=== PATIENT | female | born 1945 | race African-American/Black ===

== ENCOUNTER 2021-10-31 13:53 | Outpatient (CLI) | payer BC, SELFPAY ==
--- NOTE | ~2021-10-31 | MR_ITS ---
EXAMINATION: MR brain/brain stem wo/w con DATE: 10/31/2021 15:20 INDICATION: Left hemifacial spasm. TECHNIQUE: Magnetic resonance imaging (MRI) of the brain and brainstem was performed without and with 20 mL MultiHance intravenous contrast. COMPARISON: None. FINDINGS: There are scattered areas of nonspecific increased T2-weighted signal intensity in the cere bral white matter and daysi. There is no intracranial hemorrhage, acute infarction, or abnormal intrac ranial mass lesion. The ventricles are normal in size. There is a mucous retention cyst in left maxil kali sinus. There are likely changes of ocular lens replacement surgeries. The mastoid air cells are normal. IMPRESSION: 1. 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 Reviewed, dictated and finalized at location A. IMPRESSION: 1. Extensive nonspecific cerebral white matter disease and pontine disease, whi ch likely represents chronic small vessel ischemic disease.
[2021-10-31 14:43] LABS: Estimated Glomerular Filt Rate > 60
== END 2021-10-31 13:54 | disposition home or self-care (01) ==
PROVIDERS: Visit Provider Specialist
DX: G24.5 Blepharospasm (principal); R90.82 White matter disease, unspecified; G51.32 Clonic hemifacial spasm, left
CPT/HCPCS: 70553; A9577

== ENCOUNTER 2021-11-29 15:18 | Outpatient (CLI) | payer BC, SELFPAY ==
--- NOTE | ~2021-11-29 | US_ITS ---
EXAMINATION: US pelvic complete w TV DATE: 11/29/2021 16:11 INDICATION: Postmenopausal bleeding Comparison:No prior studies for comparison. TECHNIQUE: Multiple transabdominal and endovaginal sonographic images of the pelvis performed. FINDINGS: The uterus measures 8.6 x 4.9 x 5.6 cm. There is a uterine fibroid measuring 2.2 x 1.9 x 2 cm. The endometrial complex measures 7 mm. The ovaries are not visualized. There is no free fluid in the pelvis. There are no abnormal masses seen on either side. IMPRESSION: 1. Thickened endomtrial complex. The differential diagnosis includes endometrial hyperplasia, polyp a nd carcinoma. Biopsy is recommended. 2: Uterine fibroid measuring 2.2 cm maximum dimension. Reviewed, dictated and finalized at location A. IMPRESSION: 1. Thickened endomtrial complex. The differential diagnosis includes endometria l hyperplasia, polyp and carcinoma. Biopsy is recommended. 2: Uterine fibroid measuring 2.2 cm maximum dimension.
== END 2021-11-29 15:19 | disposition home or self-care (01) ==
PROVIDERS: Visit Provider Obstetrics & Gynecology
DX: N93.9 Abnormal uterine and vaginal bleeding, unspecified (principal); D25.9 Leiomyoma of uterus, unspecified
CPT/HCPCS: 76830; 76856

== ENCOUNTER 2021-11-29 16:11 | Outpatient (CLI) | payer BC, SELFPAY ==
--- NOTE | ~2021-11-29 | XR_ITS ---
XR hip RT min 2V 11/29/2021 16:50 Indication: Right hip pain Procedure: 3 views right hip Comparison: No prior studies for comparison. 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 There is osteitis pubis. No acute fracture or traumatic malalignment. No significant soft tissue abnormality. Prosthesis well seated. Impression: 1: No acute fracture. Reviewed, dictated and finalized at location A. Impression: 1: No acute fracture.
== END 2021-11-29 16:12 | disposition home or self-care (01) ==
LOC: ANHIMG 16:14
DX: M25.551 Pain in right hip (principal)
CPT/HCPCS: 73502